=== PATIENT | male | born 1990 | race Caucasian/White ===

== ENCOUNTER → 2017-06-23 | Outpatient (CLI) | payer OTHER | END | disposition home or self-care (01) | LOC: C.RDSM 08:29 | PROVIDERS: ATTEND Family Medicine | DX: S62.606A Fracture of unspecified phalanx of right little finger, initial encounter for closed fracture (principal); X58.XXXA Exposure to other specified factors, initial encounter ==

== ENCOUNTER → 2017-07-25 | Outpatient (CLI) | payer OTHER | END | disposition home or self-care (01) | LOC: C.RDSM 12:10 | PROVIDERS: ATTEND Family Medicine | DX: Z87.81 Personal history of (healed) traumatic fracture (principal) ==